=== PATIENT | female | born 1970 | race Caucasian/White ===

== ENCOUNTER 2020-09-16 19:31 | Outpatient (REF) | payer OTHER, SELFPAY ==
[2020-09-16 20:56] LABS: Anion Gap 8.7 mmol/L (3-11); BUN 19 mg/dL (7-18); CO2 27.3 mmol/L (21.0-32.0); Calcium 8.9 mg/dL (8.5-10.1); Calculated LDL 82 mg/dL (<100); Chloride 102 mmol/L (98-107); Cholesterol 152 mg/dL (<200); Glucose 100 mg/dL (74-106); HDL Cholesterol 42 mg/dL (40-60); Potassium 4.4 mmol/L (3.5-5.1); Sodium 138 mmol/L (136-145); Triglyceride 142 mg/dL (<150)
== END 2020-09-16 19:51 ==
LOC: NCHCN 19:31
PROVIDERS: PCP Internal Medicine; Visit Provider Nurse Practitioner Family
DX: Z13.220 Encounter for screening for lipoid disorders (principal); I10 Essential (primary) hypertension
CPT/HCPCS: 80048; 80061

== ENCOUNTER → 2020-12-02 13:53 | Outpatient (REF) | payer OTHER, SELFPAY ==
[2020-12-02 19:19] LABS: Abs Immature Grans 0.04 10^3/uL (0.0-0.06); Absolute Basophil Count 0.08 10^3/uL (0.0-0.2); Absolute Lymphocyte Count 2.42 10^3/uL (1.2-3.4); Absolute Monocyte Count 0.72 10^3/uL (0.1-0.8); Absolute Neutrophil Count 5.67 10^3/uL (1.2-6.7); Basophils % 0.9; Eosinophils % 4.3; HCT 34.5 % (36.0-46.0); HGB 10.4 g/dL (11.2-15.7); Immature Grans % 0.4; Lymphocytes % 25.9; MCH 25.2 pg (27.0-33.0); MCHC 30.1 % (32.0-36.0); MCV 83.5 fL (80-95); Monocytes % 7.7; Neutrophils % 60.8; Nucleated RBC 0 %; Platelet Count 340 10^3/uL (130-400); RBC 4.13 10^6/uL (3.93-5.22); RDW 14.2 % (11.7-14.6); RDW-SD 42.9 fL; WBC 9.33 10^3/uL (4.4-10.8)
== END ==
LOC: LBN 13:53
PROVIDERS: PCP Internal Medicine; Visit Provider Physician Assistant
DX: L40.0 Psoriasis vulgaris (principal); Z79.899 Other long term (current) drug therapy
CPT/HCPCS: 85025

== ENCOUNTER 2021-12-28 16:54 | Outpatient (REF) | payer OTHER, SELFPAY ==
--- NOTE | 2021-12-28 10:30 | PAPFT_PTH ---
PATIENT: Karo Norman LOC: [facility]#:[id number] AGE/SX: 51/F ROOM: RE12/28/[address]: Veena Watts : 1970 BED: DIS: 12/28/2021 SPEC #: [id number] RECD: 12/29/21 12:59 STATUS: MICHELE REQ #: [id number] CORTNEY: 12/28/21 10:[address]: Mell Watts DEPT: [facility] Cytology RECD BY: Cris Kamara ENTERED: 12/29/21 12:59 SP TYPE: PAPFT OTHR DR: Cory Hastings Tissues: 1 - CX/ENDOCX FOR PAP SMEARS Procedures: PAP THIN PREP/UVM Screening HPV DNA PROBE Comments: [id number]
[2021-12-28 21:18] LABS: Abs Immature Grans 0.02 10^3/uL (0.0-0.06); Absolute Basophil Count 0.09 10^3/uL (0.0-0.2); Absolute Eosinophil Count 0.44 10^3/uL (0.0-0.7); Absolute Lymphocyte Count 1.91 10^3/uL (1.2-3.4); Absolute Monocyte Count 0.51 10^3/uL (0.1-0.8); Absolute Neutrophil Count 5.57 10^3/uL (1.2-6.7); Basophils % 1.1; Eosinophils % 5.2; HCT 34.3 % (36.0-46.0); HGB 9.8 g/dL (11.2-15.7); Immature Grans % 0.2; Lymphocytes % 22.4; MCH 22.8 pg (27.0-33.0); MCHC 28.6 % (32.0-36.0); MPV 11.4 fL (8.0-11.0); Neutrophils % 65.1; Nucleated RBC 0 %; Platelet Count 361 10^3/uL (130-400); RBC 4.29 10^6/uL (3.93-5.22); RDW-SD 43.6 fL; WBC 8.54 10^3/uL (4.4-10.8)
[2021-12-28 21:28] LABS: Anion Gap 9.1 mmol/L (3-11); BUN 24 mg/dL (7-18); CO2 26.9 mmol/L (21.0-32.0); CREATININE 0.8 mg/dL (0.55-1.02); Calcium 9.4 mg/dL (8.5-10.1); Chloride 102 mmol/L (98-107); Glucose 117 mg/dL (74-106); Potassium 4.2 mmol/L (3.5-5.1); Sodium 138 mmol/L (136-145)
[2021-12-28 21:41] LABS: Hemoglobin A1C 5.9 % (<5.7)
== END 2021-12-28 16:55 | disposition home or self-care (01) ==
LOC: NCHCN 16:54
PROVIDERS: PCP Internal Medicine; Visit Provider Nurse Practitioner Family
DX: R73.09 Other abnormal glucose (principal); L40.9 Psoriasis, unspecified; Z12.4 Encounter for screening for malignant neoplasm of cervix; Z11.51 Encounter for screening for human papillomavirus (HPV); R87.610 Atypical squamous cells of undetermined significance on cytologic smear of cervix (ASC-US); W54.0XXS Bitten by dog, sequela
CPT/HCPCS: 80048; 87077; 88142; 83036; 85025; 87070; 87186; 87205; 87624

== ENCOUNTER 2022-01-05 09:41 | Outpatient (REF) | payer OTHER, SELFPAY ==
[2022-01-05 19:19] LABS: Reticulocyte 1.3 % (0.5-2.4)
[2022-01-05 19:58] LABS: ALT 11 U/L (14-59); AST 13 U/L (15-37); Albumin 3.6 g/dL (3.4-5.0); Alkaline Phosphatase 67 U/L (46-116); Bilirubin, Direct 0.1 mg/dL (0.0-0.2); Bilirubin, Total 0.3 mg/dL (0.2-1.0); TSH 2.21 uIU/mL (0.36-3.74); Total Protein 7.5 g/dL (6.4-8.2)
[2022-01-05 21:00] LABS: Ferritin 11 ng/mL (8-252); Folate 7.1 ng/mL (8.6-20.0); Vitamin B12 517 pg/mL (193-986)
[2022-01-05 21:13] LABS: Iron 18 ug/dL (50-170); Total Iron Binding Capacity 453 ug/dL (250-450); Transferrin Sat 4 % (15-50)
== END 2022-01-05 09:42 | disposition home or self-care (01) ==
LOC: NCHCN 09:41
PROVIDERS: PCP Internal Medicine; Visit Provider Nurse Practitioner Family
DX: D64.9 Anemia, unspecified (principal)
CPT/HCPCS: 80076; 82607; 82728; 82746; 83540; 83550; 84443; 85045

== ENCOUNTER 2022-02-13 18:20 | Outpatient (REF) | payer OTHER, SELFPAY ==
[2022-02-15 10:41] LABS: HIV-1/2 Ag & Ab Screen Negative (Negative)
[2022-02-15 10:51] LABS: Hepatitis C Ab w Rflx HCV PCR Negative (Negative)
[2022-02-15 11:54] LABS: Syphilis Serology (RPR) Negative (Negative)
[2022-02-15 15:25] LABS: Chlamydia Result Negative (Negative); GC Result Negative (Negative)
== END 2022-02-13 18:21 | disposition home or self-care (01) ==
LOC: NCHCN 18:20
PROVIDERS: PCP Internal Medicine; Visit Provider Nurse Practitioner Family
DX: A59.01 Trichomonal vulvovaginitis (principal); Z11.4 Encounter for screening for human immunodeficiency virus [HIV]; Z11.59 Encounter for screening for other viral diseases; Z20.2 Contact with and (suspected) exposure to infections with a predominantly sexual mode of transmission; Z11.3 Encounter for screening for infections with a predominantly sexual mode of transmission
CPT/HCPCS: 86803; 87389; 87491; 87591; 86592; 87480; 87510; 87660

== ENCOUNTER 2022-08-15 16:14 | Outpatient (REF) | payer OTHER, SELFPAY ==
[2022-08-15 18:44] LABS: Abs Immature Grans 0.02 10^3/uL (0.0-0.06); Absolute Basophil Count 0.06 10^3/uL (0.0-0.2); Absolute Eosinophil Count 0.28 10^3/uL (0.0-0.7); Absolute Lymphocyte Count 1.77 10^3/uL (1.2-3.4); Absolute Monocyte Count 0.51 10^3/uL (0.1-0.8); Absolute Neutrophil Count 4.44 10^3/uL (1.2-6.7); Basophils % 0.8; HGB 10.6 g/dL (11.2-15.7); Immature Grans % 0.3; MCH 25.9 pg (27.0-33.0); MCHC 31.2 % (32.0-36.0); MCV 83 fL (80-95); MPV 10.8 fL (8.0-11.0); Monocytes % 7.2; Neutrophils % 62.7; Platelet Count 315 10^3/uL (130-400); RBC 4.09 10^6/uL (3.93-5.22); RDW 14.6 % (11.7-14.6); RDW-SD 43.8 fL; WBC 7.08 10^3/uL (4.4-10.8)
[2022-08-15 19:02] LABS: ALT 18 U/L (14-59); AST 14 U/L (15-37); Albumin 3.7 g/dL (3.4-5.0); Alkaline Phosphatase 54 U/L (46-116); Anion Gap 8.3 mmol/L (3-11); BUN 19 mg/dL (7-18); Bilirubin, Direct 0.1 mg/dL (0.0-0.2); Bilirubin, Total 0.3 mg/dL (0.2-1.0); CO2 28.7 mmol/L (21.0-32.0); CREATININE 0.7 mg/dL (0.55-1.02); Calcium 9.1 mg/dL (8.5-10.1); Chloride 101 mmol/L (98-107); Glucose 107 mg/dL (74-106); Potassium 3.6 mmol/L (3.5-5.1); Sodium 138 mmol/L (136-145); Total Protein 7.2 g/dL (6.4-8.2)
== END 2022-08-15 16:15 | disposition home or self-care (01) ==
LOC: NCHCN 16:14
PROVIDERS: PCP Internal Medicine; Visit Provider Nurse Practitioner Family
DX: R10.9 Unspecified abdominal pain (principal); R19.7 Diarrhea, unspecified
CPT/HCPCS: 80048; 80076; 85025

== ENCOUNTER 2023-08-20 20:25 | Outpatient (REF) | payer OTHER, SELFPAY ==
[2023-08-20 19:27] LABS: Anion Gap 6.9 mmol/L (3-11); BUN 24 mg/dL (7-18); CO2 25.1 mmol/L (21.0-32.0); CREATININE 1.1 mg/dL (0.55-1.02); Calcium 9.4 mg/dL (8.5-10.1); Chloride 102 mmol/L (98-107); Estimated GFR 60.08 (mL/min/1.73m2); Glucose 104 mg/dL (74-106); Potassium 3.8 mmol/L (3.5-5.1); Sodium 134 mmol/L (136-145)
== END 2023-08-20 20:26 | disposition home or self-care (01) ==
LOC: NCHCN 20:25
PROVIDERS: PCP Internal Medicine; Visit Provider Nurse Practitioner Family
DX: I10 Essential (primary) hypertension (principal)
CPT/HCPCS: 80048

== ENCOUNTER → 2024-02-29 00:06 | Outpatient (CLI) | payer OTHER, SELFPAY ==
--- NOTE | 2024-02-29 | DI.MAMMO_ITS ---
Exam(s) MAMMO SCREENING EXAM: MAMMO SCREENING CLINICAL HISTORY: SCREENING, Z12.39. TECHNIQUE: Bilateral full field digital CC and MLO mammographic images were obtained with 3D tomosyn thesis and utilizing computer aided detection (CAD). COMPARISON: Prior baseline mammogram of 2018 was reviewed. FINDINGS: There has been no significant change in the appearance and distribution of the fibroglandular tissue. Benign-appearing left breast nodules again noted consistent with intramammary lymph nodes, unchanged. There are no new spiculated masses nor malignant appearing microcalcification groups. There is no significant architectural distortion nor skin thickening-retraction. IMPRESSION: No radiographic evidence of malignancy. BI-RADS Category 1 - Negative Breast Density - Category A - Almost entirely fatty Breast density Category C or D implies that the patient has dense breast tissue. Dense breast tissue can make it harder to find cancer on a mammogram. Dense breast tissue is also associated with an incr eased risk of breast cancer. This information about the result of the mammogram report was provided to the patient to raise their awareness. Use this report when you speak with the patient about their risks for breast cancer, which includes their family history. At that time, you may recommend additional screening tests (Ultrasoun d or MRI) as these tests may add significant information. A negative radiographic report should not delay biopsy if a dominant or clinically suspicious mass is present. Up to ten percent of cancers are not identified on mammography. A negative report may reinforce clinical impression. Adenosis and dense breasts may obscure an underlying neoplasm. False positive reports average 6 to 10%. Patient will receive a letter notifying them of these results.
== END ==
PROVIDERS: PCP Internal Medicine; Visit Provider Nurse Practitioner Family
DX: Z12.31 Encounter for screening mammogram for malignant neoplasm of breast (principal)
CPT/HCPCS: 77063; 77067

== ENCOUNTER 2024-06-09 20:30 | Outpatient (REF) | payer OTHER, SELFPAY | END 2024-06-09 20:31 | disposition home or self-care (01) | LOC: LBN 20:30 | PROVIDERS: PCP Internal Medicine; Visit Provider Nurse Practitioner Family | DX: Z11.3 Encounter for screening for infections with a predominantly sexual mode of transmission (principal) | CPT/HCPCS: 87480; 87510; 87660 ==

== ENCOUNTER 2024-09-08 12:29 | Outpatient (REF) | payer OTHER, SELFPAY ==
[2024-09-08 18:35] LABS: Anion Gap 7.4 mmol/L (3-11); BUN 18 mg/dL (7-18); CO2 28.6 mmol/L (21.0-32.0); CREATININE 0.8 mg/dL (0.55-1.02); Calcium 9.9 mg/dL (8.5-10.1); Chloride 106 mmol/L (98-107); Glucose 102 mg/dL (74-106); Potassium 4.9 mmol/L (3.5-5.1); Sodium 142 mmol/L (136-145)
== END 2024-09-08 12:30 | disposition home or self-care (01) ==
LOC: NCHCN 12:29
PROVIDERS: PCP Internal Medicine; Visit Provider Nurse Practitioner Family
DX: I10 Essential (primary) hypertension (principal)
CPT/HCPCS: 80048

== ENCOUNTER 2024-10-20 01:12 | Outpatient (CLI) | payer OTHER, SELFPAY ==
--- NOTE | 2024-10-20 | DI.RAD_ITS ---
Exam(s) XR FEMUR LT EXAM: XR FEMUR LT CLINICAL HISTORY: LT DISTAL FEMUR FRACTURE W NONUNION S/P ORIF, ASSESS HEALING. TECHNIQUE: 2D digital imaging was performed of the left femur. Four images were obtained. AP and lat eral views were obtained. COMPARISON: DX XR FEMUR LEFT 2 OR MORE VIEWS from 09/17/2024 FINDINGS: BONES: There is again seen a comminuted fracture involving the distal left femur. There is a sidepla te in place. Since the prior examination additional screws have been placed within the hardware. Th michelle new screws are intact. The old broken screws are still present. The fracture appears stable in alignment. Minimal if any significant healing is seen. No new fractures present. Degenerative perales ges are seen in the knee characterized by joint space narrowing particularly in the medial femoral ti bial joint. SOFT TISSUE: Normal. IMPRESSION: Interval revision of the orthopedic hardware. Stable alignment of the distal left femoral fracture. DATA REPOSITORY: RADIATION DOSE DELIVERED:
== END 2024-10-20 01:32 ==
LOC: DI 01:12
PROVIDERS: PCP Internal Medicine; Visit Provider Orthopaedic Surgery
DX: S72.44 Fracture of lower epiphysis (separation) of femur (principal); X58.XXXD Exposure to other specified factors, subsequent encounter
CPT/HCPCS: 73552

== ENCOUNTER 2024-11-28 00:49 | Outpatient (CLI) | payer OTHER, SELFPAY ==
--- NOTE | 2024-11-28 10:36 | DI.RAD_ITS ---
Exam(s) XR FEMUR LT EXAM: XR FEMUR LT INDICATION: S/P ORIF LT FEMUR FX,ASSESS HEALING,S72.402K. COMPARISON: DX XR FEMUR LEFT 2 OR MORE VIEWS from 09/17/2024 CR XR FEMUR LT from 10/20/2024 TECHNIQUE: 2D digital imaging was performed. Two views. FINDINGS: Stable fracture and hardware alignment. Continued healing at the distal femoral fracture. Stable a ppearance of fractures of the 2nd, 4th and 5th screws from the superior aspect of the sideplate. Severe degenerative changes again noted in the knee. The hip is unremarkable. DATA REPOSITORY: RADIATION DOSE DELIVERED:
== END 2024-11-28 01:09 ==
LOC: DI 00:49
PROVIDERS: PCP Internal Medicine; Visit Provider Orthopaedic Surgery
DX: S72.402D Unspecified fracture of lower end of left femur, subsequent encounter for closed fracture with routine healing (principal); X58.XXXD Exposure to other specified factors, subsequent encounter
CPT/HCPCS: 73552

== ENCOUNTER 2025-01-02 00:16 | Outpatient (CLI) | payer OTHER, SELFPAY ==
--- NOTE | 2025-01-02 10:25 | DI.RAD_ITS ---
Exam(s) XR FEMUR LT EXAM: XR FEMUR LT CLINICAL HISTORY: CLOSED FX DISTAL END LEFT FEMUR S72.402K ASSESS HEALING, S/P ORIF. TECHNIQUE: 2D digital imaging was performed. AP and lateral views. COMPARISON: CR XR FEMUR LT from 11/28/2024 FINDINGS: BONES: Stable alignment of the fixation plate in the mid to distal femur. Stable fracture alignment. Continued healing at distal femoral comminuted fracture. No bony destructive lesion is seen. JOINTS: Severe degenerative changes are noted at right knee. The hip is unremarkable SOFT TISSUE: Normal. IMPRESSION: Continued fracture healing. DATA REPOSITORY: RADIATION DOSE DELIVERED:
== END 2025-01-02 00:36 ==
LOC: DI 00:16
PROVIDERS: PCP Internal Medicine; Visit Provider Orthopaedic Surgery
DX: S72.44 Fracture of lower epiphysis (separation) of femur (principal); X58.XXXD Exposure to other specified factors, subsequent encounter
CPT/HCPCS: 73552

== ENCOUNTER 2025-08-19 09:52 | Outpatient (REF) | payer OTHER, SELFPAY ==
[2025-08-19 20:24] LABS: Abs Immature Grans 0.03 10^3/uL (0.0-0.06); HCT 36.6 % (36.0-46.0); HGB 11.6 g/dL (11.2-15.7); Immature Grans % 0.3 %; MCH 27.7 pg (27.0-33.0); MCHC 31.7 % (32.0-36.0); MCV 87 fL (80-95); MPV 10.1 fL (8.0-11.0); Platelet Count 283 10^3/uL (130-400); RBC 4.19 10^6/uL (3.93-5.22); RDW 13.9 % (11.7-14.6); RDW-SD 44.8 fL; WBC 10.08 10^3/uL (4.4-10.8)
[2025-08-19 20:30] LABS: Anion Gap 10.6 mmol/L (3-11); BUN 17 mg/dL (7-18); CO2 26.4 mmol/L (21.0-32.0); Calcium 9.4 mg/dL (8.5-10.1); Chloride 104 mmol/L (98-107); Estimated GFR 86.96 (mL/min/1.73m2); Glucose 113 mg/dL (74-106); Potassium 4.4 mmol/L (3.5-5.1); Sodium 141 mmol/L (136-145)
[2025-08-19 20:36] LABS: C & S Indicated? No
== END 2025-08-19 09:53 | disposition home or self-care (01) ==
LOC: NCHCN 09:52
PROVIDERS: PCP Internal Medicine; Visit Provider Nurse Practitioner Family
DX: M54.50 Low back pain, unspecified (principal); G89.29 Other chronic pain
CPT/HCPCS: 80048; 81015; 85025

== ENCOUNTER 2025-08-19 16:23 | Emergency (ER) | payer OTHER, SELFPAY ==
[2025-08-19 16:28] VITALS: BP 181/127; PULSE 88; RESP 20; TEMP 36.9; O2SAT 96
--- NOTE | 2025-08-19 16:45 | ED.GENADUL_ITS ---
Discharge Plan Disposition Patient Disposition: Home Condition: Stable Discharge Details Clinical Impression: Lumbar disc disease Primary Care Provider: Cory Hastings ED Provider: Tariq Wooten Home Meds and New Rx's Prescriptions: New cyclobenzaprine 10 mg tablet 10 mg PO TID PRNQty: 30 0RF ketorolac 10 mg tablet 10 mg PO QID 5 Days Qty: 20 0RF Rx Instructions: maximum total duration of 5 days from all oral, intranasal, or parenteral formulations Continued lisinopril 5 mg tablet 5 mg PO DAILY Discharge Instructions Instructions: Ketorolac (Systemic), Cyclobenzaprine, Degenerative Disc Disease ED Additional Instructions: You were seen in the emergency department for your lumbar disc disease, you have extensive arthritis of your lower thoracic and lumbar spine this is likely the cause of your pain, there is no evidence of any kidney stone or other abdominal or renal pathology. You need to be taking 1000 mg of Tylenol 3-4 times per day like clockwork, care home between Tylenol dosings take the prescribed Toradol also 4 times per day, take the prescribed cyclobenzaprine 3 times a day for skeletal muscle relaxation, purchase [id number] lidocaine patches in place on areas of pain, purchase [id number] Voltaren gel and rub on areas of pain twice per day, ask your primary care provider for referrals to [place] [facility] injections or other specialist treatments. I have provided a referral to physical therapy as this is the only way to avoid and improve your pain without surgery. Please return to the emergency department for urinary retention, bowel incontinence, worsening leg weakness spreading upward. Stand Alone Forms: Physical Therapy Referral Referrals: Cory Hastings [Primary Care Provider, Medicine] Discharge Data Discharge Date/Time-TO BE ENTERED AT DEPARTURE: 08/19/25 19:25 HPI General Date/Time Provider Initiated Documentation: 08/19/25 16:37 . HPI Narrative: 55 year-old female presents to ED today by POV/ambulating with a chief complaint of lower back pain with onset for four weeks- has been seen at a multitude of providers, and endorses possibly more frequent urination, wondering if her back pain diagnosed as MSK back pain could be kidney stones as its now more on the R flank. Quality described as deep aching pain, no radiation to numbness to legs, hematuria, urinary retention, fever, endorses nausea. Severity is described as 7/10. Palliating factors include has tried OTC analgesics, toradol, and muscle relaxers without relief. Provoking factors include nothing specific. Events leading up to the incident/Associated Symptoms: Patient has not gone to physical therapy. Patient not anticoagulated. Related Data Home Medications ?Medication ?Instructions ?Recorded ?Confirmed cyclobenzaprine 10 mg tablet 10 mg PO TID PRN #30 tabs 08/19/25 ketorolac 10 mg tablet 10 mg PO QID 5 days #20 tabs 08/19/25 lisinopril 5 mg tablet 5 mg PO DAILY 08/19/2508/19 Previous Rx's ?Medication ?Instructions ?Recorded cyclobenzaprine 10 mg tablet 10 mg PO TID PRN #30 tabs 08/19/25 ketorolac 10 mg tablet 10 mg PO QID 5 days #20 tabs 08/19/25 Allergies Allergy/AdvReac Type Severity Reaction Status Date / Time No Known Allergies Allergy Unverified 08/19/25 16:33 General Stated Complaint: Nk/Back Pain TOR: 3 Review of Systems All systems reviewed & are unremarkable except as noted in HPI and below Exam Narrative Exam Narrative: GENERAL APPEARANCE: Morbid obesity, non-toxic, awake and alert, atraumatic, no acute distress. SKIN: Warm, pink, dry, intact, without rashes/lesions/ulcerations. HEAD: Normocephalic, atraumatic, normal hair distribution for gender/age. EYES: Normal conjunctiva, no exudates on lids/lashes. ENT: Nares patent, no circumoral cyanosis, no facial swelling NECK: Supple, trachea midline, painless cervical ROM. LUNGS/CHEST: Non-labored respirations, normal A/P diameter, symmetrical expansion, no chest wall deformity HEART (CV/PV): Regular rate and rhythm without murmur, no peripheral edema, no JVD. ABDOMEN: Soft, non-distended, no guarding, R CVA tenderness to percussion. MSK: Normal ROM, no swelling/deformity to bilateral UEs or LEs, moving all extremities without weakness, no cyanosis, spine midline with tenderness to lumbar back paraspinally radiating to R oblique area, normal curvature. NEURO: Mental Status AAOx4 - alert to person, place, time, events No facial droop, no forehead involvement. Motor: No focal weakness - strength 5/5 in bilateral UEs and LEs, proximal and distal, symmetric. Sensory: sensation intact to light touch globally. Gait normal: patient ambulated without ataxia into ED room. PSYCH: euthymic, cooperative, pleasant, appropriate speech Course Vital Signs Vital signs: Vital Signs Temperature 36.9 C 08/19/25 16:28 Pulse 88 08/19/25 16:28 Respiratory Rate 20 08/19/25 16:28 Blood Pressure 181/127 H 08/19/25 16:28 Pulse Oximetry 96 08/19/25 16:28 Temperature 36.9 C 08/19/25 16:28 Temperature Source Oral 08/19/25 16:28 Pulse 88 08/19/25 16:28 Respiratory Rate 20 08/19/25 16:28 Blood Pressure 181/127 H 08/19/25 16:28 Blood Pressure Position Sitting 08/19/25 16:28 Pulse Oximetry 96 08/19/25 16:28 Oxygen Delivery Method Room Air 08/19/25 16:28 Oxygen Flow Rate 0 08/19/25 16:28 Pain Level 7 08/19/25 16:28 Medical Decision Making This dictation utilizes [id number] dictation software and may contain unedited grammatical errors. 55 year-old female presents to ED today by POV/ambulating with a chief complaint of lower back pain with onset for four weeks- has been seen at a multitude of providers, and endorses possibly more frequent urination, wondering if her back pain diagnosed as MSK back pain could be kidney stones as its now more on the R flank. Quality described as deep aching pain, no radiation to numbness to legs, hematuria, urinary retention, fever, endorses nausea. Severity is described as 7/10. Palliating factors include has tried OTC analgesics, toradol, and muscle relaxers without relief. Provoking factors include nothing specific. Events leading up to the incident/Associated Symptoms: Patient has not gone to physical therapy. Patients' medical history: Lumbar disc disease, no known kidney stone history. Family and social history: Noncontributory. Pertinent exam findings / vital signs include right lumbar back tenderness radiating around to the right oblique area, strength 5/5 in bilateral lower extremities, no CVA tenderness to percussion. Differential / pathologies of concern include renal stones, lumbar radiculopathy. Diagnostic studies of: - CBC, CMP, lipase, CT renal colic without contrast. UA ordered but sample not given - CBC shows no leukocytosis - CMP without actionable abnormality - Lipase negative - CT shows extensive lumbar disc disease multilevel Interventions of: - 1 g p.o. Tylenol and 10 mg p.o. Toradol, Lidoderm patch, methocarbamol, counseled on extensive conservative management at home and the need to follow-up with physical therapy. ED Course/Assessment/Plan: 55-year-old female with BMI 55 presents to multiple facilities for likely musculoskeletal back pain, she has extensive lumbar disc disease at multiple levels, counseled her that she needs to attend physical therapy and do all of these medications consistently as her pain is only likely slightly to improve, I did adolescent counselor her on seeking a PCP follow-up appointment with orthospine, strict return criteria for urinary retention or bowel incontinence or neurovascular compromise of lower extremities. Findings not consistent with cauda equina syndrome, renal stones. Disposition of lumbar disc disease. Patient verbalized understanding of the plan and return to ED criteria and engaged in shared decision making. Medical Records Medical records reviewed: Yes I reviewed the patient's medical records. Imaging Data Radiologic Study: Attestation: I personally reviewed and interpreted this imaging study as follows: Imaging: CT Scan Radiologist's impression: EXAM: CT RENAL COLIC WO CLINICAL HISTORY: R flank pain. TECHNIQUE: Imaging Protocol: Axial computed tomography images with coronal and sagittal reformatted images were created and reviewed. COMPARISON: CT CT LUMBAR SPINE RECONS from 08/19/2025 FINDINGS: Lung Bases: No acute findings. Liver: Normal density. No measurable mass. Gallbladder and biliary tract: No radiodense calculus. No biliary ductal dilation. Pancreas: No abnormal calcifications or inflammatory process. Spleen: Normal size. Kidneys: Normal size, contour and axis.No radiodense stones or obstructive uropathy. No suspicious masses seen. Adrenal glands: No mass is seen. Lymph nodes: Within normal limits. Vasculature: Abdominal aorta non-dilated. Bladder:No stones. No gross wall thickening. No evidence of mass. Bowel: No obstruction. No bowel wall thickening. Peritoneal cavity: No ascites.No free air. No focal collection. No mesenteric inflammatory response. Reproductive organs: Within normal limits. Soft Tissues: Within normal limits. Lumbar spine/bones: Exam is somewhat limited by image noise in part due to patient body habitus. No evidence of lumbar spine or pelvic fracture. Advanced degenerative changes in the lower thoracic and lumbar spine. There is multilevel disc space narrowing with prominent endplate osteophytes. There is fusion between the T11-12 and L1-2 vertebral bodies. There is mild central canal stenosis at L1-2 secondary to endplate osteophytes projecting posteriorly. There is significant bilateral neural foraminal narrowing. There is also central canal stenosis at L2-3 mainly secondary to disc bulging. There is mild loss of disc height and vacuum phenomena at L3-4. There is also mild central canal stenosis. At L4-5, there is moderate loss of disc height and vacuum phenomena. There is degenerative mild spondylolisthesis there is moderate central canal stenosis at this level as well as significant bilateral neural foraminal narrowing. There is severe loss of disc height at L5-S1 no central canal stenosis. There is some severe bilateral neural foraminal narrowing... IMPRESSION: No evidence of urinary tract calculi or hydronephrosis. No acute abnormality in the abdomen or pelvis. Extensive degenerative changes of the lumbar spine with multilevel bilateral neural foraminal narrowing as well as central canal stenosis. Lab Data Lab results reviewed: Yes I reviewed the patient's lab results. Labs: Laboratory Tests Range/Units 08/19/25 17:37 WBC (4.4-10.8) 10^3/uL 8.76 RBC (3.93-5.22) 10^6/uL 4.27 Hgb (11.2-15.7) g/dL 11.6 Hct (36.0-46.0) % 36.8 MCV (80-95) fL 86 MCH (27.0-33.0) pg 27.2 MCHC (32.0-36.0) % 31.5 L RDW (11.7-14.6) % 14.3 Plt Count (130-400) 10^3/uL 284 MPV (8.0-11.0) fL 9.5 Immature Gran % % 0.2 Neutrophils % % 67.2 Lymphocytes % % 22.6 Monocytes % % 6.4 Eosinophils % % 2.9 Basophils % % 0.7 Nucleated RBC % (0.0-0.3) % 0.0 Absolute Neutrophils (1.2-6.7) 10^3/uL 5.89 Absolute Lymphocytes (1.2-3.4) 10^3/uL 1.98 Absolute Monocytes (0.1-0.8) 10^3/uL 0.56 Absolute Eosinophils (0.0-0.7) 10^3/uL 0.25 Absolute Basophils (0.0-0.2) 10^3/uL 0.06 Sodium (136-145) mmol/L 141 Potassium (3.5-5.1) mmol/L 4.1 Chloride (98-107) mmol/L 104 Carbon Dioxide (21.0-32.0) mmol/L 29.1 Anion Gap (3-11) mmol/L 7.9 BUN (7-18) mg/dL 13 Creatinine (0.55-1.02) mg/dL 0.8 Est GFR (CKD-EPI 2020) (mL/min/1.73m2) 86.96 Glucose (74-106) mg/dL 105 Calcium (8.5-10.1) mg/dL 9.2 Total Bilirubin (0.2-1.0) mg/dL 0.3 AST (15-37) U/L 13 L ALT (14-59) U/L 23 Alkaline Phosphatase (46-116) U/L 76 Total Protein (6.4-8.2) g/dL 7.2 Albumin (3.4-5.0) g/dL 3.8 Lipase (<78) U/L 22 PFSH All Active Problems (Updated 08/19/25 @ 18:19 by ANSELMO Zamudio) Lumbar disc disease (Acute) Social History Smoking/Tobacco Use Status: Current-Occasional Tobacco Type: e-cigarettes Smoking risk assessment performed?: Yes Alcohol Intake: never Drug use: Never Housing: house Do you feel safe at home: Yes Do you feel safe in your relationship?: Yes
--- NOTE | 2025-08-19 16:45 | DI.CT_ITS ---
Exam(s) CT LUMBAR SPINE RECONS CT RENAL COLIC WO EXAM: CT RENAL COLIC WO CLINICAL HISTORY: R flank pain. TECHNIQUE: Imaging Protocol: Axial computed tomography images with coronal and sagittal reformatted images were created and reviewed. COMPARISON: CT CT LUMBAR SPINE RECONS from 08/19/2025 FINDINGS: Lung Bases: No acute findings. Liver: Normal density. No measurable mass. Gallbladder and biliary tract: No radiodense calculus. No biliary ductal dilation. Pancreas: No abnormal calcifications or inflammatory process. Spleen: Normal size. Kidneys: Normal size, contour and axis.No radiodense stones or obstructive uropathy. No suspicious masses seen. Adrenal glands: No mass is seen. Lymph nodes: Within normal limits. Vasculature: Abdominal aorta non-dilated. Bladder:No stones. No gross wall thickening. No evidence of mass. Bowel: No obstruction. No bowel wall thickening. Peritoneal cavity: No ascites.No free air. No focal collection. No mesenteric inflammatory response. Reproductive organs: Within normal limits. Soft Tissues: Within normal limits. Lumbar spine/bones: Exam is somewhat limited by image noise in part due to patient body habitus. No evidence of lumbar spine or pelvic fracture. Advanced degenerative changes in the lower thoracic and lumbar spine. There is multilevel disc space narrowing with prominent endplate osteophytes. There is fusion between the T11-12 and L1-2 vertebral bodies. There is mild central canal stenosis at L1-2 secondary to endplate osteophytes projecting posteriorly. There is significant bilateral neural foraminal narrowing. There is also central canal stenosis at L2-3 mainly secondary to disc bulging. There is mild loss of disc height and vacuum phenomena at L3-4. There is also mild central canal stenosis. At L4-5, there is moderate loss of disc height and vacuum phenomena. There is degenerative mild spondylolisthesis there is moderate central canal stenosis at this level as well as significant bilateral neural foraminal narrowing. There is severe loss of disc height at L5-S1 no central canal stenosis. There is some severe bilateral neural foraminal narrowing... IMPRESSION: No evidence of urinary tract calculi or hydronephrosis. No acute abnormality in the abdomen or pelvis. Extensive degenerative changes of the lumbar spine with multilevel bilateral neural foraminal narrowing as well as central canal stenosis. RADIATION DOSE DELIVERED: Total DLP Total DLP DATA REPOSITORY: All CT scans at this facility are submitted to the National Radiology Data Registry (NRDR) Dose Index Registry (DIR) with the [employer] ([employer]). RADIATION OPTIMIZATION: All CT scans at this facility use at least one of these dose optimization techniques: automated exposure control; mA and/or kV adjustment per patient size (includes targeted exams where dose is matched to clinical indication); or iterative reconstruction.
[2025-08-19] MEDS: Ketorolac 10 MG TAB PO (17:25)
[2025-08-19] MEDS: Acetaminophen 500 MG TAB 1000 MG PO (17:25)
[2025-08-19] MEDS: Methocarbamol 500 MG TAB 1000 MG PO (17:26)
[2025-08-19] MEDS: Lidocaine 5% Patch 1 PATCH TP (17:28)
[2025-08-19 17:42] LABS: Abs Immature Grans 0.02 10^3/uL (0.0-0.06); HCT 36.8 % (36.0-46.0); HGB 11.6 g/dL (11.2-15.7); Immature Grans % 0.2 %; MCH 27.2 pg (27.0-33.0); MCHC 31.5 % (32.0-36.0); MCV 86 fL (80-95); MPV 9.5 fL (8.0-11.0); Platelet Count 284 10^3/uL (130-400); RBC 4.27 10^6/uL (3.93-5.22); RDW 14.3 % (11.7-14.6); RDW-SD 44.7 fL; WBC 8.76 10^3/uL (4.4-10.8)
[2025-08-19 17:59] LABS: ALT 23 U/L (14-59); AST 13 U/L (15-37); Albumin 3.8 g/dL (3.4-5.0); Alkaline Phosphatase 76 U/L (46-116); Anion Gap 7.9 mmol/L (3-11); BUN 13 mg/dL (7-18); Bilirubin, Total 0.3 mg/dL (0.2-1.0); CO2 29.1 mmol/L (21.0-32.0); Calcium 9.2 mg/dL (8.5-10.1); Chloride 104 mmol/L (98-107); Estimated GFR 86.96 (mL/min/1.73m2); Glucose 105 mg/dL (74-106); Lipase 22 U/L (<78); Potassium 4.1 mmol/L (3.5-5.1); Sodium 141 mmol/L (136-145); Total Protein 7.2 g/dL (6.4-8.2)
[2025-08-19 18:38] LABS: Glucose Negative (Negative)
[2025-08-19 18:44] LABS: WBC >50 HPF (0-5)
--- NOTE | 2025-08-21 09:32 | ED.PROG_ITS ---
Date of service: 08/21/25 Time of Service: 09:32 Medical Decision Making Spoke to the patient in regards to her urine culture that was sent apparently because there is greater than 50 WBCs on micro, she is not having any dysuria I do believe this is skin contamination contributing to the urine culture not warranting antibiotics Medical Records Medical records reviewed: Yes I reviewed the patient's medical records. Lab Data Lab results reviewed: Yes I reviewed the patient's lab results. Labs: 08/19/25 18:30 Urine - Voided Urine Culture - Final Group B Streptococcus Gram positive keri, mixed Laboratory Tests Range/Units 08/19/25 08/19/25 17:37 18:30 WBC (4.4-10.8) 10^3/uL 8.76 RBC (3.93-5.22) 10^6/uL 4.27 Hgb (11.2-15.7) g/dL 11.6 Hct (36.0-46.0) % 36.8 MCV (80-95) fL 86 MCH (27.0-33.0) pg 27.2 MCHC (32.0-36.0) % 31.5 L RDW (11.7-14.6) % 14.3 Plt Count (130-400) 10^3/uL 284 MPV (8.0-11.0) fL 9.5 Immature Gran % % 0.2 Neutrophils % % 67.2 Lymphocytes % % 22.6 Monocytes % % 6.4 Eosinophils % % 2.9 Basophils % % 0.7 Nucleated RBC % (0.0-0.3) % 0.0 Absolute Neutrophils (1.2-6.7) 10^3/uL 5.89 Absolute Lymphocytes (1.2-3.4) 10^3/uL 1.98 Absolute Monocytes (0.1-0.8) 10^3/uL 0.56 Absolute Eosinophils (0.0-0.7) 10^3/uL 0.25 Absolute Basophils (0.0-0.2) 10^3/uL 0.06 Sodium (136-145) mmol/L 141 Potassium (3.5-5.1) mmol/L 4.1 Chloride (98-107) mmol/L 104 Carbon Dioxide (21.0-32.0) mmol/L 29.1 Anion Gap (3-11) mmol/L 7.9 BUN (7-18) mg/dL 13 Creatinine (0.55-1.02) mg/dL 0.8 Est GFR (CKD-EPI 2020) (mL/min/1.73m2) 86.96 Glucose (74-106) mg/dL 105 Calcium (8.5-10.1) mg/dL 9.2 Total Bilirubin (0.2-1.0) mg/dL 0.3 AST (15-37) U/L 13 L ALT (14-59) U/L 23 Alkaline Phosphatase (46-116) U/L 76 Total Protein (6.4-8.2) g/dL 7.2 Albumin (3.4-5.0) g/dL 3.8 Lipase (<78) U/L 22 Urine Color (Yellow) Yellow Urine Clarity (Clear) Clear Urine pH (5-8) 6.0 Ur Specific [place] (1.005-1.025) 1.025 Urine Protein (Neg-Trace) mg/dL Negative Urine Ketones (Negative) mg/dL Negative Urine Blood (Negative) Negative Urine Nitrite (Negative) Negative Urine Bilirubin (Negative) Negative Urine Urobilinogen (Up to 0.2) mg/dL 0.2 Ur Leukocyte Esterase (Negative) Small H Urine RBC (0-2) HPF 10-20 H Urine WBC (0-5) HPF >50 H Ur Epithelial Cells (Negative) HPF Many Urine Crystals (Negative) HPF Negative Urine Bacteria (Negative) HPF Many Urine Casts (Negative) LPF 5-10 Hyaline Urine Mucus (Negative) Negative Ur Culture Indicated? No/Sq. Contamination Urine Glucose (Negative) mg/dL Negative Discharge Plan Disposition Patient Disposition: Home Condition: Stable Discharge Details Clinical Impression: Lumbar disc disease Primary Care Provider: Cory Hastings ED Provider: Tariq Wooten Home Meds and New Rx's Prescriptions: New cyclobenzaprine 10 mg tablet 10 mg PO TID PRNQty: 30 0RF ketorolac 10 mg tablet 10 mg PO QID 5 Days Qty: 20 0RF Rx Instructions: maximum total duration of 5 days from all oral, intranasal, or parenteral formulations Continued lisinopril 5 mg tablet 5 mg PO DAILY Discharge Instructions Instructions: Ketorolac (Systemic), Cyclobenzaprine, Degenerative Disc Disease ED Additional Instructions: You were seen in the emergency department for your lumbar disc disease, you have extensive arthritis of your lower thoracic and lumbar spine this is likely the cause of your pain, there is no evidence of any kidney stone or other abdominal or renal pathology. You need to be taking 1000 mg of Tylenol 3-4 times per day like clockwork, penitent[facility] between Tylenol dosings take the prescribed Toradol also 4 times per day, take the prescribed cyclobenzaprine 3 times a day for skeletal muscle relaxation, purchase [id number] lidocaine patches in place on areas of pain, purchase [id number] Voltaren gel and rub on areas of pain twice per day, ask your primary care provider for referrals to orthospine at [facility] for possible facet injections or other specialist treatments. I have provided a referral to physical therapy as this is the only way to avoid and improve your pain without surgery. Please return to the emergency department for urinary retention, bowel incontinence, worsening leg weakness spreading upward. Stand Alone Forms: Physical Therapy Referral Referrals: Cory Hastings [Primary Care Provider, Medicine] Discharge Data Discharge Date/Time-TO BE ENTERED AT DEPARTURE: 08/19/25 19:25
== END 2025-08-19 19:25 | disposition home or self-care (01) ==
PROVIDERS: Emergency Provider Physician Assistant; PCP Internal Medicine
DX: M51.85 Other intervertebral disc disorders, thoracolumbar region; R10.A1 Flank pain, right side
CPT/HCPCS: 99284 ×2; 00123; 80053; 83690; 87077; 74176; 81003; 81015; 85025; 87086

== ENCOUNTER → 2025-10-15 01:09 | Outpatient (CLI) | payer OTHER, SELFPAY ==
--- NOTE | 2025-10-15 | DI.RAD_ITS ---
Exam(s) XR HIP RT COMPLETE AP PELVIS EXAM: XR HIP RT COMPLETE AP PELVIS CLINICAL HISTORY: PAIN JOINT HIP RT, M25.551. TECHNIQUE: 2D digital imaging was performed. COMPARISON: CT CT RENAL COLIC WO from 08/19/2025 FINDINGS: 3 views No evidence of pelvic nor hip fracture. There are no obvious degenerative changes in the hips. A partially included fixation plate in the left femur is noted, its superior aspect below the subtrochanteric region of the left femur. Bone density in the pelvis appears normal. There are no osseous lesions. No evidence of avascular necrosis of the femoral heads. IMPRESSION: No acute osseous findings. DATA REPOSITORY: RADIATION DOSE DELIVERED:
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
== END ==
PROVIDERS: PCP Internal Medicine; Visit Provider Nurse Practitioner Family
DX: N63.11 Unspecified lump in the right breast, upper outer quadrant (principal); M25.511 Pain in right shoulder; Z12.31 Encounter for screening mammogram for malignant neoplasm of breast; R92.313 Mammographic fatty tissue density, bilateral breasts
CPT/HCPCS: 77062; 77066; 73502; G0279

== ENCOUNTER 2025-10-16 18:16 | Emergency (ER) | payer OTHER, SELFPAY ==
[2025-10-16 18:24] VITALS: BP 181/92; PULSE 87; RESP 16; TEMP 36.8; O2SAT 96
--- NOTE | 2025-10-16 19:30 | DI.RAD_ITS ---
Exam(s) XR KNEE RT 4V AP,LAT,SUDHIR,PAT EXAM: XR KNEE RT 4V AP,LAT,SUDHIR,PAT CLINICAL HISTORY: sunrise. TECHNIQUE: 2D digital imaging was performed. Three views. COMPARISON: No exams were available for comparison FINDINGS: BONES: No acute fracture is present. No bony destructive lesion is seen. JOINTS: There is severe narrowing of the medial femoral tibial joint space with a [id number] appearance. There is some remodeling of the medial tibial plateau as well as subchondral cyst formation. Severe degenerative changes also noted in the lateral femoral tibial joint. There is prominent spurring at the patellofemoral joint. There is varus angulation at the knee.. No joint effusion is seen. SOFT TISSUE: Diffuse soft tissue edema. IMPRESSION: Severe degenerative changes. No fracture is visible. The preliminary [facility] report was reviewed. DATA REPOSITORY: RADIATION DOSE DELIVERED:
[2025-10-16] MEDS: Acetaminophen 325 MG TAB 650 MG PO (20:04)
[2025-10-16 20:05] LABS: Abs Immature Grans 0.03 10^3/uL (0.0-0.06); HCT 33.6 % (36.0-46.0); HGB 10.5 g/dL (11.2-15.7); Immature Grans % 0.3 %; MCH 26.5 pg (27.0-33.0); MCHC 31.3 % (32.0-36.0); MCV 85 fL (80-95); MPV 9.9 fL (8.0-11.0); Platelet Count 334 10^3/uL (130-400); RBC 3.96 10^6/uL (3.93-5.22); RDW 13.5 % (11.7-14.6); RDW-SD 41.9 fL; WBC 11.40 10^3/uL (4.4-10.8)
--- NOTE | 2025-10-16 20:12 | DI.[facility]_ITS ---
PROCEDURE INFORMATION: Exam: XR Left Knee Exam date and time: 10/16/2025 7:40 PM Age: 55 years old Clinical indication: Injury or trauma; Fall; Blunt trauma; Knee and lower leg; Right TECHNIQUE: Imaging protocol: Radiologic exam of the left knee. Views: 4 or more views. COMPARISON: No relevant prior studies available. FINDINGS: Bones/joints: No acute fracture. Severe tricompartmental osteoarthritis. Soft tissues: Normal. IMPRESSION: 1. No acute fracture. 2. Severe tricompartmental osteoarthritis. Dictated and Authenticated by: Lars Harrell MD. Orderin Ambrosio Lynch MD
--- NOTE | 2025-10-16 20:55 | DI.CT_ITS ---
Exam(s) CT LOWER EXTREMITY RT WO EXAM: CT LOWER EXTREMITY RT WO CLINICAL HISTORY: mid femur to mid tib/fib, pain, fall. TECHNIQUE: Imaging Protocol: Axial computed tomography images with coronal and sagittal reformatted images were created and reviewed. The field of view includes the mid thigh through the mid leg. CONTRAST MATERIAL: Noncontrast COMPARISON: CT CT LOWER EXTREMITY LT WO from 09/18/2024 CR XR HIP RT COMPLETE AP PELVIS from 10/15/2025 CR,XR XR KNEE RT 4V AP,LAT,SUDHIR,PAT from 10/16/2025 FINDINGS: Bones: There is no evidence of fracture or dislocation. No osteomyelitic changes are identified. No lytic or sclerotic lesions are identified. Joints: severe degenerative changes are again noted in the knee. There is a small joint effusion. There is a chronic appearing bony density beneath the lower pole of the patella. There is a posterior joint space loose body. Soft Tissues: There is a soft tissue hematoma seen anterior to the patella and extending inferiorly approximately 15 cm. It measures 3.3 cm AP by 8 cm transverse. Mild diffuse edema is noted in the subcutaneous fat. The muscles are unremarkable. IMPRESSION: No evidence of fracture. Anterior soft tissue hematoma at the level of the patella and proximal tibia. Severe the tricompartmental degenerative changes of the knee. The preliminary [facility] report was reviewed. RADIATION DOSE DELIVERED: Total DLP DATA REPOSITORY: All CT scans at this facility are submitted to the National Radiology Data Registry (NRDR) Dose Index Registry (DIR) with the [employer] (A[employer]). RADIATION OPTIMIZATION: All CT scans at this facility use at least one of these dose optimization techniques: automated exposure control; mA and/or kV adjustment per patient size (includes targeted exams where dose is matched to clinical indication); or iterative reconstruction.
--- NOTE | 2025-10-16 21:08 | DI.[facility]_ITS ---
PROCEDURE INFORMATION: Exam: CT Right Lower Extremity Without Contrast, Knee Exam date and time: 10/16/2025 8:45 PM Age: 55 years old Clinical indication: Pain and injury or trauma; Blunt trauma; Knee; Right; Left; Mid femur to mid tib/fib, pain, fall TECHNIQUE: Imaging protocol: CT of the right lower extremity without contrast was performed. Exam focused on the knee. Radiation optimization: All CT scans at this facility use at least one of these dose optimization techniques: automated exposure control; mA and/or kV adjustment per patient size (includes targeted exams where dose is matched to clinical indication); or iterative reconstruction. COMPARISON: CR XR KNEE RT 4V AP,LAT,SUDHIR,PAT 10/16/2025 7:40 PM FINDINGS: Bones/joints: No acute fracture. Severe tricompartmental osteoarthritis. Suprapatellar effusion. Soft tissues: Soft tissue edema identified anterior to the proximal femur which measures 6.8 cm by 3.3 cm in greatest dimension. Subcutaneous soft tissue edema. IMPRESSION: 1. No acute fracture. 2. Soft tissue hematoma measuring 6.8 cm x 3.3 cm anterior to the proximal femur. 3. Tricompartmental osteoarthritis. 4. Suprapatellar effusion. Dictated and Authenticated by: Lars Harrell MD. Orderin Ambrosio Lynch MD
[2025-10-16 23:12] VITALS: BP 141/87; PULSE 89; RESP 18; O2SAT 96
--- NOTE | 2025-10-17 00:16 | W.ED.GENAD ---
Discharge Plan Disposition Patient Disposition: Home Condition: Stable Discharge Details Clinical Impression: Traumatic hematoma, Suprapatellar effusion of knee Primary Care Provider: Cory Hastings ED Provider: Cris Valente Home Meds and New Rx's Prescriptions: Continued lisinopril 5 mg tablet 5 mg PO DAILY gabapentin 100 mg capsule 100 mg PO TID Patient Comments: TAKE ONE CAPSULE BY MOUTH AT BEDTIME NEEDED; pt states she takes TID Discharge Instructions Instructions: Taking care of bruises Additional Instructions: Please follow-up with your primary care physician on Sunday for reassessment, apply ice and elevate your leg as much as possible Should you develop fever, enlarging bruise, worsening pain please present for reassessment Stay away from ibuprofen and take Tylenol as needed for pain Stand Alone Forms: Portal Information Referrals: Cory Hastings [Primary Care Provider, Medicine] Discharge Data Discharge Date/Time-TO BE ENTERED AT DEPARTURE: 10/16/25 22:48 HPI General Date/Time Provider Initiated Documentation: 10/16/25 19:20. HPI Narrative: This 55-year-old female presents with report of fall and right knee which is mechanical in nature. She has bruising and pain. She denies any additional injuries or history of coagulopathy. Related Data Home Medications ?Medication ?Instructions ?Recorded ?Confirmed lisinopril 5 mg tablet 5 mg PO DAILY 08/19/25 10/16/25 gabapentin 100 mg capsule 100 mg PO TID 10/16/25 10/16/25 Allergies Allergy/AdvReac Type Severity Reaction Status Date / Time No Known Allergies Allergy Unverified 10/16/25 18:31 General Stated Complaint: Orthopedic TOR: 4 Exam Narrative Exam Narrative: 55-year-old female presenting with large hematoma to right knee, approximately 6 inch x 3 inch area, vesicles overlying, neurovascularly intact, no tenderness to ankle specifically no evidence of compartment syndrome no tenderness to the popliteal region brisk DP and PT pulses with good sensation. No additional evidence of trauma, no tenderness to hip Course Vital Signs Vital signs: Vital Signs Temperature 36.8 C 10/16/25 18:24 Pulse 87 10/16/25 18:24 Respiratory Rate 16 10/16/25 18:24 Blood Pressure 181/92 H 10/16/25 18:24 Pulse Oximetry 96 10/16/25 18:24 Temperature 36.8 C 10/16/25 18:24 Temperature Source Oral 12/12/25 18:24 Pulse 89 10/16/25 23:12 Respiratory Rate 18 10/16/25 23:12 Blood Pressure 141/87 H 10/16/25 23:12 Blood Pressure Position Sitting 10/16/25 18:24 Pulse Oximetry 96 10/16/25 23:12 Oxygen Delivery Method Room Air 10/16/25 18:24 Oxygen Flow Rate 0 10/16/25 18:24 Pain Level 7 10/16/25 18:24 Lab/Test Results Lab/Test Results: Laboratory Tests Range/Units 10/16/25 20:01 WBC (4.4-10.8) 10^3/uL 11.40 H RBC (3.93-5.22) 10^6/uL 3.96 Hgb (11.2-15.7) g/dL 10.5 L Hct (36.0-46.0) % 33.6 L MCV (80-95) fL 85 MCH (27.0-33.0) pg 26.5 L MCHC (32.0-36.0) % 31.3 L RDW (11.7-14.6) % 13.5 Plt Count (130-400) 10^3/uL 334 MPV (8.0-11.0) fL 9.9 Immature Gran % % 0.3 Neutrophils % % 73.6 Lymphocytes % % 17.6 Monocytes % % 5.1 Eosinophils % % 2.5 Basophils % % 0.9 Nucleated RBC % (0.0-0.3) % 0.0 Absolute Neutrophils (1.2-6.7) 10^3/uL 8.39 H Absolute Lymphocytes (1.2-3.4) 10^3/uL 2.01 Absolute Monocytes (0.1-0.8) 10^3/uL 0.58 Absolute Eosinophils (0.0-0.7) 10^3/uL 0.29 Absolute Basophils (0.0-0.2) 10^3/uL 0.10 Medical Decision Making Results: CBC shows anemia at 10.6 for hemoglobin, this is not significantly changed from prior checks x-ray of right knee was ordered there is no acute abnormality. Patient is in quite a bit of pain and her exam is challenging secondary he has some lymphedema so I did order CT lower extremity. The CT shows evidence of 6 x 3 cm hematoma. There is no obvious fracture on CT scan. Assessment and plan: Patient presenting status post mechanical fall landing directly onto right knee. We did discuss possible draining of the hematoma for discomfort however patient states she feels improved with ice, she will continue to elevate and a compressive dressing was applied. There is no evidence of compartment syndrome on today's assessment. Patient will need recheck by primary care physician next week she will elevate. I suspect the vesicles are secondary to rapid expansion from the blood given trauma to the area. She had no dramatic worsening of the vesicles or area of bruising and there is no evidence of compartment syndrome or obvious extravasation at this time. Pain is improved for patient. Compressive dressing applied I have low suspicion clinically for active extravasation I think patient stable for discharge home at this time. PFSH All Active Problems (Updated 10/16/25 @ 22:41 by ANSELMO Higuera) Suprapatellar effusion of knee (Acute) Traumatic hematoma (Acute) Social History Smoking/Tobacco Use Status: Current-Occasional Tobacco Type: e-cigarettes Smoking risk assessment performed?: Yes Alcohol Intake: never Drug use: Never Substance use type: does not use Housing: house Do you feel safe at home: Yes Do you feel safe in your relationship?: Yes
== END 2025-10-16 22:48 | disposition home or self-care (01) ==
PROVIDERS: Emergency Provider Physician Assistant; PCP Internal Medicine
DX: S80.01XA Contusion of right knee, initial encounter (principal); M25.461 Effusion, right knee; F17.290 Nicotine dependence, other tobacco product, uncomplicated; W01.198A Fall on same level from slipping, tripping and stumbling with subsequent striking against other object, initial encounter
CPT/HCPCS: 99284; 73564; 73700; 85025

== ENCOUNTER 2025-10-21 10:18 | Outpatient (REF) | payer OTHER, SELFPAY ==
[2025-10-21 21:43] LABS: TSH (W/Ref FT4) 1.87 uIU/mL (0.55-4.78)
[2025-10-21 21:47] LABS: Cholesterol 159 mg/dL (<200); HDL Cholesterol 43 mg/dL (>or=50)
== END 2025-10-21 10:19 | disposition home or self-care (01) ==
LOC: NCHCN 10:18
PROVIDERS: PCP Internal Medicine; Visit Provider Nurse Practitioner Family
DX: R53.82 Chronic fatigue, unspecified (principal); Z13.220 Encounter for screening for lipoid disorders
CPT/HCPCS: 80061; 84443